=== PATIENT | female | born 1955 | race Caucasian/White ===

== ENCOUNTER 2019-01-15 13:21 | Emergency (ER) | payer MEDICAID, OTHER ==
[~2019-01-15] VITALS: Ht 160 cm; Wt 80.0 kg
[~2019-01-15 13:21] MED LIST: ATOR-2 PO; CIPR500T4 PO; FLUO20CA38 PO; NPH10OT RIGHT EAR; PHEN-538 PO
[2019-01-15 13:26] VITALS: BP 165/78; PULSE 89; RESP 18; Ht 160 cm; Wt 80.0 kg
[2019-01-15] MEDS ORDERED: MECLIZINE 12.5 MG TAB PO ONE (14:00)
[2019-01-15] MEDS ORDERED: MECL-77 PO (14:35)
[2019-01-15] MEDS ORDERED: ACET500C5 PO (14:36)
--- NOTE | 2019-01-15 14:40 | ERD ---
ER Documentation Chief Complaint Chief Complaint sore throat HPI 63-year-old female presents with 1 day history of sore throat. She also complains of spinning type dizziness. She may have worsening symptoms with head movement. She states that she had a subjective fever but no fever triage. Patient has a history of coronary artery disease and stent. Patient denies chest pain, shortness of breath, vomiting, abdominal pain, diarrhea, urinary complaints. ROS All systems reviewed and are negative except as per history of present illness. Medications Home Meds Active Scripts Acetaminophen* (Tylophen*) 500 Mg Capsule, 1 CAP PO Q6H PRN for PAIN AND OR ELEVATED TEMP, #15 CAP Prov:SERGEY QURESHI MD 01/15/19 Meclizine Hcl* (Meclizine Hcl*) 25 Mg Tablet, 25 MG PO Q8H PRN for DIZZINESS, #15 TAB Prov:SERGEY QURESHI MD 01/15/19 Phenazopyridine Hcl* (Pyridium*) 200 Mg Tab, 200 MG PO TID PRN for DYSURIA, #6 TAB Prov:TREMAYNE MCCALL NP 03/11/15 Neomycin/Polymyxin/Hydrocort* (Cortisporin* Otic) 10 Ml Susp, 4 DROP RIGHT EAR QID for 7 Days, EA Prov:TREMAYNE MCCALL WOUND CARE SPECIALIST 03/11/15 Ciprofloxacin Hcl* (Ciprofloxacin Hcl*) 500 Mg Tablet, 500 MG PO BID for 10 Days, TAB Prov:TREMAYNE MCCALL NP 03/11/15 Reported Medications Fluoxetine Hcl* (Prozac*) 20 Mg Capsule, 20 MG PO DAILY, CAP 04/16/14 Atorvastatin* (Atorvastatin*) 80 Mg Tablet, 80 MG PO HS, TAB 04/16/14 Allergies Allergies: Coded Allergies: No Known Allergy (Unverified , 04/26/14) PMhx/Soc History of Surgery: Yes (HYSTERECTOMY) Anesthesia Reaction: No Hx Neurological Disorder: No Hx Respiratory Disorders: No Hx Cardiac Disorders: Yes (HIGH CHOLESTEROL) Hx Psychiatric Problems: Yes (DEPRESSION) Hx Miscellaneous Medical Probl: Yes (HTN, Hyperlipidemia, ) Hx Alcohol Use: No Hx Substance Use: No Hx Tobacco Use: No FmHx Family History: No diabetes, No coronary disease, No other Physical Exam Vitals Vital Signs Date Temp Pulse Resp B/P (MAP) Pulse Ox O2 O2 Flow FiO2 Time Delivery Rate 01/15/19 97.8 89 18 165/78 99 13:26 (107) Physical Exam Const: No acute distress Head: Atraumatic Eyes: Normal Conjunctiva. Eyes Abdoulaye and extraocular movements intact. ENT: Normal External Ears, Nose and Mouth. TMs and oropharynx normal. Neck: Full range of motion. No meningismus. Resp: Clear to auscultation bilaterally Cardio: Regular rate and rhythm, no murmurs Abd: Soft, non tender, non distended. Normal bowel sounds Skin: No petechiae or rashes Back: No midline or flank tenderness Ext: No cyanosis, or edema Neur: Awake and alert. Normal gait. No cerebellar signs. No signs of central vertigo. No pre-reproducible vertigo. Essentially normal neuro exam with no focal deficits and cranial nerves II through XII grossly intact. Psych: Normal Mood and Affect Results 24 hrs Laboratory Tests Test 01/15/19 14:12 Urine Color COLORLESS Urine Clarity CLEAR Urine pH 7.0 Urine Specific [place] 1.003 Urine Ketones NEGATIVE mg/dL Urine Nitrite NEGATIVE mg/dL Urine Bilirubin NEGATIVE mg/dL Urine Urobilinogen NEGATIVE mg/dL Urine Leukocyte Esterase NEGATIVE Ashleigh/ul Urine Hemoglobin NEGATIVE mg/dL Urine Glucose NEGATIVE mg/dL Urine Total Protein NEGATIVE mg/dl Current Medications Medications Dose Sig/Dahlia Start Time Status Last (Trade) Ordered Route PRN Stop Time Admin Dose Reason Admin Meclizine 25 mg ONCE ONCE 01/15/19 DC 01/15/19 HCl PO 14:00 01/15/19 14:12 (Antivert) 14:01 Procedures/MDM Patient presents with a sore throat starting today. She also states that she had vertigo type dizziness but essentially has a normal exam. She is well- appearing. EKG: Rate/Rhythm: Normal Sinus Rhythm. Rate equals 58 QRS, ST, T-waves: No changes consistent w/ acute ischemia Impression: No evidence of ischemia or arrhythmia Urine shows no significant acute abnormalities. Patient may have early viral pharyngitis. She has no signs or symptoms of central vertigo, neurologic deficit, signs of chest pain, shortness breath abdominal pain, additional concerning signs or symptoms. She will be treated with Antivert, Tylenol, further observation at home and return precautions. The patient was stable with no new complaints during the ER course. Clinically, there is no current evidence to suggest meningitis, sepsis, acute abdomen, pneumonia, stroke, acute coronary syndrome, pulmonary embolism, aortic dissection or any other emergent condition appearing to require further evaluation or hospitalization. Patient counseled regarding my diagnostic impression and care plan. Prior to discharge all questions answered. Pt agrees with treatment plan and understands strict return precautions. Pt is instructed to follow up with primary care provider within 24-48 hours. Precautionary instructions provided including instructions to return to the ER if not improving or for any worsening or changing symptoms or concerns. Disclaimer: Inadvertent spelling and grammatical errors are likely due to EHR/dictation software use and do not reflect on the overall quality of patient care. Also, please note that the electronic time recorded on this note does not necessarily reflect the actual time of the patient encounter. Departure Diagnosis: Primary Impression: Vertigo Additional Impression: Sore throat Condition: Stable Patient Instructions: When You Have a Sore Throat, Vertigo, Unspecified Additional Instructions: Examines normal hoy. Cheque otro vez con haney doctor primario en el proximo vega or regresa para mas o nueva simptomas. Probablamente un virus que dura 2-4 vega. cheque otro vez en el proximo kathryn para mas simptomas- vomito, dolor, beto, problemas con respirando, o con haney doctor primario. SERGEY QURESHI MD Jan 15, 2019 14:40
== END 2019-01-15 14:41 | disposition home or self-care (01) ==
LOC: FTE 13:21
DX: J02.9 Acute pharyngitis, unspecified (principal); I10 Essential (primary) hypertension; I25.10 Atherosclerotic heart disease of native coronary artery without angina pectoris; Z98.61 Coronary angioplasty status
CPT/HCPCS: 81003; 93005; Z7502; Z7610